=== PATIENT | female | born 1995 | race Caucasian/White ===

== ENCOUNTER 2020-01-22 04:25 | Emergency (ER) | payer MEDICAID, OTHER ==
[~2020-01-22] VITALS: Ht 162.6 cm; Wt 73.0 kg
[~2020-01-22 04:25] MED LIST: HYDR-3512 PO
[2020-01-22 04:29] VITALS: BP 118/63
== END 2020-01-22 05:56 | disposition home or self-care (01) ==
LOC: ER 04:42
DX: F41.9 Anxiety disorder, unspecified (principal); R00.0 Tachycardia, unspecified; J45.909 Unspecified asthma, uncomplicated
CPT/HCPCS: 99283